=== PATIENT | male | born 1980 | race Caucasian/White ===

== ENCOUNTER 2019-02-18 08:55 | Day surgery (SDC) | payer BC ==
[~2019-02-18 08:55] MED LIST: CEFAZOLIN 2 GM/50 ML (PMX) 50 ML IVPB
[2019-02-18 10:01] LABS: ADD MAN DIFF? NO
[2019-02-18] MEDS: SOD CHLORIDE 0.9% 1,000 ML IV (10:03)
[2019-02-18 10:17] LABS: WHITE BLOOD COUNT 6.3 10^3/ul (4.8-10.8)
[2019-02-18 10:17] LABS: BASOPHILS % 0.6 % (0.0-2.0); EOSINOPHILS # 0.2 10^3/ul (0.0-0.5); HEMATOCRIT 45.2 % (42.0-52.0); HEMOGLOBIN 15.2 g/dl (14.0-18.0); LYMPHOCYTES # 2.5 10^3/ul (0.8-2.9); LYMPHOCYTES % 40.3 % (15.0-51.0); MEAN CORPUSCULAR HEMOGLOBIN 28.1 pg (29.0-33.0); MEAN CORPUSCULAR HGB CONC 33.6 g/dl (32.0-37.0); MEAN CORPUSCULAR VOLUME 83.7 fl (82.0-101.0); MEAN PLATELET VOLUME 9.1 fl (7.4-10.4); MONOCYTE # 0.6 10^3/ul (0.3-0.9); MONOCYTES % 9.4 % (0.0-11.0); NEUTROPHIL # 2.9 10^3/ul (1.6-7.5); NEUTROPHILS % 46.4 % (39.0-77.0); PLATELET COUNT 251 10^3/UL (140-415)
[2019-02-18 10:23] LABS: ALANINE AMINOTRANSFERASE 77 IU/L (13-69); ALBUMIN 4.8 g/dl (3.3-4.9); ALBUMIN/GLOBULIN RATIO 1.33; ALKALINE PHOSPHATASE 63 IU/L (42-121); ANION GAP 9 (5-13); ASPARTATE AMINO TRANSFERASE 50 IU/L (15-46); BLOOD UREA NITROGEN 17 mg/dl (7-20); CALCIUM 10.1 mg/dl (8.4-10.2); CARBON DIOXIDE 27 mmol/L (21-31); CHLORIDE 105 mmol/L (97-110); CREATININE 0.86 mg/dl (0.61-1.24); Estimated GFR > 60 mL/min (>60); GLUCOSE 101 mg/dl (70-220); POTASSIUM 4.2 mmol/L (3.5-5.1); SODIUM 141 mmol/L (135-144); TOTAL PROTEIN 8.4 g/dl (6.1-8.1)
[2019-02-18] MEDS ORDERED: NEOSTIGMINE 3 MG/3 ML SYRINGE (10:32)
[2019-02-18] MEDS ORDERED: CEFAZOLIN 1 GM INJ (10:32)
[2019-02-18] MEDS ORDERED: ONDANSETRON 4 MG INJ (10:32)
[2019-02-18] MEDS ORDERED: PROPOFOL 20 ML (10:32)
[2019-02-18] MEDS ORDERED: MIDAZOLAM 1 MG/ML 2 ML INJ (10:32)
[2019-02-18] MEDS ORDERED: GLYCOPYRROLATE 0.4 MG INJ (10:32)
[2019-02-18] MEDS ORDERED: DEXAMETHASONE 4 MG/ML 5 ML INJ (10:32)
[2019-02-18] MEDS ORDERED: FENTAnyl 50 MCG/ML VIAL (10:32)
[2019-02-18] MEDS ORDERED: ROCURONIUM 50 MG INJ (10:32)
[2019-02-18 10:33] LABS: INR 0.96; PROTIME 12.9 Sec (11.9-14.9)
[2019-02-18 10:34] LABS: PARTIAL THROMBOPLASTIN TIME 29.9 Sec (23.0-35.0)
[2019-02-18] MEDS ORDERED: ROPIVACAINE 0.5 % 30 ML VIAL (11:28)
[2019-02-18] MEDS ORDERED: FENTAnyl 50 MCG/ML VIAL IV ×2 (11:30)
[2019-02-18] MEDS ORDERED: TRIMETHOBENZAMIDE 100 MG/ML VIAL IM (11:30)
[2019-02-18] MEDS ORDERED: hydrALAzine 20 MG INJ IV (11:30)
[2019-02-18] MEDS ORDERED: HYDROmorphONE 1 MG/5 ML IV SYRINGE IV (11:30)
[2019-02-18] MEDS ORDERED: OXYCODONE/ACETAMINOPHEN (5/325) TAB PO (11:30)
[2019-02-18] MEDS ORDERED: LABETALOL HCL 20MG INJ IV (11:30)
[2019-02-18] MEDS ORDERED: ALBUTEROL 0.083% (NEB) 2.5 MG/3 ML AMP HHN (11:30)
[2019-02-18] MEDS ORDERED: EPHEDrine 25 MG/5 ML SYG IV (11:30)
[2019-02-18] MEDS ORDERED: IPRATROPIUM (NEB) 0.5 MG/2.5 ML AMP HHN (11:30)
[2019-02-18] MEDS ORDERED: MIDAZOLAM 1 MG/ML 2 ML INJ IV (11:30)
[2019-02-18] MEDS ORDERED: DIPHENHYDRAMINE 50 MG INJ IV (11:30)
[2019-02-18] MEDS ORDERED: KETOROLAC 30 MG INJ (11:38)
[2019-02-18] MEDS ORDERED: morphine 10 MG INJ (12:05)
[2019-02-18] MEDS: CEFAZOLIN 1 GM/50 ML (PMX) 50 ML IVPB (12:27)
[2019-02-18] MEDS: ONDANSETRON 4 MG INJ IV (12:30)
[2019-02-18] MEDS: MEPERIDINE 25 MG INJ IV (12:31)
[2019-02-18] MEDS: OXYCODONE/ACETAMINOPHEN (5/325) TAB PO (12:31)
[2019-02-18] MEDS: HYDROmorphONE 1 MG/5 ML IV SYRINGE IV ×2 (12:41→12:58)
[2019-02-18] MEDS: HYDROCODONE/APAP (5/325) TAB PO (12:45)
[2019-02-18] MEDS: FENTAnyl 50 MCG/ML VIAL IV (13:05)
== END 2019-02-18 13:56 | disposition home or self-care (01) ==
LOC: SDS 08:55
DX: K80.10 Calculus of gallbladder with chronic cholecystitis without obstruction (principal); E03.9 Hypothyroidism, unspecified
CPT/HCPCS: 47562; 80053; 85025; 85610; 85730; 88304